=== PATIENT | female | born 2005 | race Caucasian/White ===

== ENCOUNTER 2025-02-11 15:28 | Emergency (ER) | payer OTHER, SELFPAY ==
[2025-02-11 15:33] VITALS: BP 138/90; PULSE 87; TEMP 36.7; O2SAT 100; BMI 32.3
--- NOTE | 2025-02-11 15:46 | ED_ITS ---
HPI HPI - General Adult General Chief complaint: Abdominal Pain Stated complaint: ABDOMINAL PAIN Time Seen by Provider: 02/11/25 15:32 Source: patient Mode of arrival: walk-in Limitations: no limitations History of Present Illness HPI narrative: 19-year-old female presents for right upper quadrant pain. She recently moved to this area from [facility] and states in that area she was diagnosed with gallstones. She was supposed to have her gallbladder taken out in the middle of February but she and her family moved here and she does not have a doctor. She has been having this issue for months or perhaps years. No trauma or fever. The pain is moderate and is intermittent. Related Data Home Medications ?Medication ?Instructions ?Recorded ?Confirmed esomeprazole magnesium 40 mg 40 mg PO DAILY 02/11/25 0 02/11/25 capsule,delayed release (Nexium) Previous Rx's ?Medication ?Instructions ?Recorded acetaminophen 300 mg-codeine 30 mg 1 tab PO Q6H PRN pa in 5 days #20 02/11/25 tablet tabs ondansetron 4 mg disintegrating 4 mg PO Q6H PRN nausea and 02/11/25 tablet vomiting #20 tabs Allergies Allergy/AdvReac Type Severity Reaction Status Date / Time No Known Drug Allergies Allergy Verified 02/11/25 15:32 Review of Systems ROS Narrative A ten point review of systems is negative except as noted above. PFSH PFSH Social History Little interest or pleasure in doing things: not at all Feeling down, depressed, or hopeless: not at all Exam Narrative Exam Narrative: Nurses note and vital signs reviewed and patient is not hypoxic. General: The patient appears well and in no apparent distress. Patient is resting comfortably on cart. Skin: Warm, dry, no pallor noted. There is no rash noted. Head: Normocephalic, atraumatic Eye: Normal conjunctiva, no drainage Ears, Nose, Mouth, and Throat: oral mucosa is moist. Nares patent. Cardiovascular: Regular Rate and Rhythm Respiratory: Patient is in no distress, no accessory muscle use, lungs are clear to auscultation, no wheezing, rales or rhonchi Back: non-tender GI: Mild tenderness in the right upper quadrant only. No masses or distention. No tenderness elsewhere. Musculoskeletal: The patient has no evidence of calf tenderness, no pitting edema, symmetrical pulses noted bilaterally Neurological: A&O, normal speech Psychiatric: Cooperative Constitutional Vital Signs, click to edit/add: Last Vital Signs Temp 98.0 F 02/11/25 15:33 Pulse 87 02/11/25 15:33 Resp 18 02/11/25 15:33 BP 138/90 02/11/25 15:33 Pulse Ox 100 02/11/25 15:33 O2 Del Method Room Air 02/11/25 15:33 Course Vital Signs Vital signs: Vital Signs Temperature 98.0 F 02/11/25 15:33 Pulse Rate 87 02/11/25 15:33 Respiratory Rate 18 02/11/25 15:33 Blood Pressure 138/90 02/11/25 15:33 Pulse Oximetry 100 02/11/25 15:33 Oxygen Delivery Method Room Air 02/11/25 15:33 Temperature 98.0 F 02/11/25 15:33 Pulse Rate 87 02/11/25 15:33 Respiratory Rate 18 02/11/25 15:33 Blood Pressure 138/90 02/11/25 15:33 Pulse Oximetry 100 02/11/25 15:33 Oxygen Delivery Method Room Air 02/11/25 15:33 Medical Decision Making MDM Narrative Medical decision making narrative: Labs are essentially normal. LFTs are very minimally elevated, the AST is 96 and ALT 114. She is not and she has normal bilirubin as well as amylase and lipase. She will be discharged home with prescriptions for pain medicine and nausea medicine and referrals to general surgery. Treatment diagnosis and follow-up were discussed with the patient and her father. Differential Diagnosis Differential Diagnosis: Abdominal pain, biliary colic, hepatitis, pancreatitis Lab Data Lab results reviewed: Yes I reviewed the patient's lab results Labs: Lab Results 02/11/25 Range/Units 15:52 WBC 5.9 (4.0-11.0) 10^3/uL RBC 4.69 (4.20-5.40) 10^6/uL Hgb 13.5 (12.0-16.0) g/dL Hct 40.4 (36.0-48.0) % MCV 86.1 (81.0-99.0) fL MCH 28.8 (26.7-34.0) pg MCHC 33.4 (29.9-35.2) g/dL RDW 12.4 (11.0-15.0) % Plt Count 255 (150-450) 10^3/uL MPV 9.9 (9.5-13.5) fL Neut % (Auto) 51.8 (43.0-75.0) % Lymph % (Auto) 38.7 (20.5-60.0) % [place] % (Auto) 6.6 (1.7-12.0) % Eos % (Auto) 2.4 (0.9-7.0) % Baso % (Auto) 0.3 (0.2-2.0) % Neut # (Auto) 3.0 (1.4-6.5) 10^3/uL Lymph # (Auto) 2.3 (1.2-3.8) 10^3/uL [place] # (Auto) 0.4 (0.3-0.8) 10^3/uL Eos # (Auto) 0.1 (0.0-0.7) 10^3/uL Baso # (Auto) 0.0 (0.0-0.1) 10^3/uL Abs Immat Gran (auto) 0.01 (0.00-0.03) 10^3/uL Imm/Tot Granulo (auto) 0.2 (0.0-0.5) % Sodium 142 (136-145) mmol/L Potassium 4.2 (3.5-5.1) mmol/L Chloride 105 (98-107) mmol/L Carbon Dioxide 24.9 (21.0-32.0) mmol/L Anion Gap 16.3 BUN 12.0 (7.0-18.0) mg/dL Creatinine 0.85 (0.55-1.02) mg/dL Est GFR ( Amer) >60 (>=60 mL/min/1.73m^2) Est GFR (Non-Af Amer) >60 (>=60 mL/min/1.73m^2) BUN/Creatinine Ratio 14.1 Glucose 99 (74-106) mg/dL Calcium 9.4 (8.5-10.1) mg/dL Total Bilirubin 0.4 (0.2-1.0) mg/dL Direct Bilirubin 0.1 (0.0-0.2) mg/dL AST 96 H (15-37) U/L ALT 114 H (14-59) U/L Alkaline Phosphatase 86 (46-116) U/L Total Protein 7.2 (6.4-8.2) g/dL Albumin 3.4 (3.4-5.0) g/dL Globulin 3.8 g/dL Albumin/Globulin Ratio 0.9 Amylase 50 (25-115) U/L Lipase 25.0 (16.0-77.0) U/L Serum HCG, Qual Negative (NEGATIVE) Discharge Plan Discharge Chief Complaint: Abdominal Pain Clinical Impression: Abdominal pain, Biliary colic Patient Disposition: Home, Self-Care Time of Disposition Decision: 16:35 Condition: Good Mode of Transportation: Private Vehicle Prescriptions / Home Meds: New acetaminophen-codeine 300-30 mg tablet 1 tab PO Q6H PRN (Reason: pain) 5 Days Qty: 20 0RF ondansetron 4 mg tablet,disintegrating 4 mg PO Q6H PRN (Reason: nausea and vomiting) Qty: 20 0RF No Action esomeprazole magnesium [Nexium] 40 mg capsule,delayed release(DR/EC) 40 mg PO DAILY Print Language: Slovak Instructions: Biliary Colic (ED), Abdominal Pain (ED) Referrals: Sagar Anders MD [Physician, General Surgery] - 1 week Sagar Foote MD [Physician, General Surgery] - 1 week Physician,Non-Staff, [Primary Care Provider] - 1 week
[2025-02-11 16:02] LABS: Hematocrit 40.4 % (36.0-48.0); Hemoglobin 13.5 g/dL (12.0-16.0); Immature Granulocytes Abs Auto 0.01 10^3/uL (0.00-0.03); Immature Granulocytes Pct Auto 0.2 % (0.0-0.5); Lymphocytes Absolute Auto 2.3 10^3/uL (1.2-3.8); Mean Corpuscular HGB Conc 33.4 g/dL (29.9-35.2); Mean Corpuscular Hemoglobin 28.8 pg (26.7-34.0); Mean Corpuscular Volume 86.1 fL (81.0-99.0); Platelet Count 255 10^3/uL (150-450); Red Blood Count 4.69 10^6/uL (4.20-5.40); White Blood Count 5.9 10^3/uL (4.0-11.0)
[2025-02-11 16:17] LABS: Alanine Aminotransferase 114 U/L (14-59); Albumin Globulin Ratio 0.9; Albumin Level 3.4 g/dL (3.4-5.0); Alkaline Phosphatase 86 U/L (46-116); Amylase 50 U/L (25-115); Anion Gap 16.3; Aspartate Amino Transferase 96 U/L (15-37); Blood Urea Nitrogen 12.0 mg/dL (7.0-18.0); Calcium 9.4 mg/dL (8.5-10.1); Carbon Dioxide 24.9 mmol/L (21.0-32.0); Chloride 105 mmol/L (98-107); Estimated GFR (African America >60 (>=60 mL/min/1.73m^2); Estimated GFR (Non-African Ame >60 (>=60 mL/min/1.73m^2); Globulin 3.8 g/dL; Glucose 99 mg/dL (74-106); Lipase 25.0 U/L (16.0-77.0); Potassium 4.2 mmol/L (3.5-5.1); Sodium 142 mmol/L (136-145); Total Protein 7.2 g/dL (6.4-8.2)
== END 2025-02-11 16:43 | disposition home or self-care (01) ==
PROVIDERS: Emergency Provider Emergency Medicine
DX: K80.50 Calculus of bile duct without cholangitis or cholecystitis without obstruction (principal); R10.11 Right upper quadrant pain
CPT/HCPCS: 36415; 80048; 80076; 82150; 83690; 84703; 85025; 99283